=== PATIENT | female | born 1965 | race Caucasian/White ===

== ENCOUNTER → 2016-08-12 | Outpatient (CLI) | payer MEDICARE ==
--- NOTE | ~2016-08-12 | PUL ---
PATIENT'S NAME: LORENZO POLLARD [facility] AGE: 50 Y [address] ROOM: [place] [id number] LOCATION: [facility] ADMIT DATE: 08/12/2016 Pulmonary DISCHARGE DATE: FAMILY PHYSICIAN: Tori Lo MD ATTENDING PHYSICIAN: AKSHAT SIMMONS NAME OF PROCEDURE: Pulmonary Function Test DATE OF PROCEDURE: August 12, 2016 TECH: ATripe, SENIOR GL ACCOUNTANT REASON FOR EXAM: Complex Sleep Apnea Syndrome RESULTS: 1. FVC was 3.08 liters which is 63% of predicted and low, FEV1 was 2.41 liters which is 62% of predicted and low, and FEV1/FVC was 78% and normal. The flow volume curve did not reveal any significant airflow limitation. After bronchodilator administration FVC decreased to 3.06 liters and FEV1 increased to 2.61 which is a 9% increase. FEV1/FVC was 86%. 2. DLCO was 22 with an adjusted DLCO of 23 which is 59% of predicted and low. 3. Total lung capacity was 5 liters which is 72% of predicted and low, and residual volume was 1.9 liters which is 74% of predicted and normal. 4. pH was 7.4, pCO2 was 53, PO2 was 73 while on room air. The base excess was 6.6. PHYSICIAN INTERPRETATION: The patient has no airflow limitation and no significant bronchodilator response. Her diffusion capacity is moderately low. She has evidence of moderate restrictive lung disease. There is respiratory acidosis with adequate metabolic compensation and no hypoxia at rest while on room air. MD DEDE VELARDE/paul /[id number] dtt: 08/13/16 1322 , AKSHAT SIMMONS dtd: 08/13/16 1059
[2016-08-12 13:24] LABS: BICARBONATE 32.8 mmol/L (18.0-23.0); PCO2 53 mmHg (35-45); PO2 73 mmHg (80-90)
== END | disposition disaster alternative care site (69) ==
LOC: GRTH 12:46
PROVIDERS: Internal Medicine Critical Care Medicine
DX: G47.31 Primary central sleep apnea (principal); G47.19 Other hypersomnia; J98.4 Other disorders of lung; E87.2 Acidosis

== ENCOUNTER → 2016-08-27 | Outpatient (CLI) | payer MEDICARE ==
--- NOTE | ~2016-08-27 | PUL ---
PATIENT'S NAME: LORENZO POLLARD [facility] AGE: 51 Y [address] ROOM: [place] [address] LOCATION: [facility] ADMIT DATE: 08/27/2016 Pulmonary DISCHARGE DATE: FAMILY PHYSICIAN: Tori Lo MD ATTENDING PHYSICIAN: AKSHAT SIMMONS NAME OF PROCEDURE: Sleep study PROCEDURE DATE: 08/27/16 TECH: MAR Owen TEST #: [facility] [place]# [id number] TECHNICAL PARAMETERS: The patient was studied using International 10/20 measuring system. While the patient was studied, there was continuous monitoring of EEG (8 leads), EOG (2 leads), EKG (3 leads), submental EMG (3 leads), tibial (4 leads), respiratory inductive plethysmography (RIP) for thoracic and abdominal effort, oral and nasal airflow with a thermocouple and pressure transducer, and oximetry. The dye lab technician also performed visual and auditory observations noting things like body position, patient's status, breath sounds, artifact, snoring level and patient comments. Continuous sound was monitored using a 2-way speaker system and video monitoring was performed using an infrared camera. Review of the entire study was performed epoch by epoch utilizing a single epoch and multiple epoch capability sleep system. MEDICAL HISTORY: Patient is a 50-year-old massively obese woman with complex sleep apnea. This study was done to titrate PAP therapy. SLEEP STAGE SUMMARY: The patient was studied for 458 minutes of which she slept 409 minutes. She fell asleep in 2 minutes and slept for 90% of the night. Sleep architecture revealed a decline in REM sleep. RESPIRATORY SUMMARY: The patient had previously failed CPAP titration due to emergence and persistence of central events. This study was started on BiPAP. BiPAP was initially titrated to 22/14 cm. The apnea/hypopnea index remained exceptionally high on those settings in the patient was then switched to AVAPS. AVAPS settings were adjusted, but also failed to adequately control the respiratory events including central events. The patient was switched back to BiPAP. Best level of control through the night occurred with BiPAP at 20/14 cm with 2 liters of oxygen bled in for non apneic hypoxemic episodes that persisted. At 20/14 cm the apnea-hypopnea index was 18.5 events per hour. EKG SUMMARY: No dysrhythmias were noted. PATIENT'S NAME: LORENZO POLLARD [facility] AGE: 51 Y [address] ROOM: [place] [address] LOCATION: [facility] ADMIT DATE: 08/27/2016 Pulmonary DISCHARGE DATE: FAMILY PHYSICIAN: Tori Lo MD ATTENDING PHYSICIAN: AKSHAT SIMMONS LIMB MOVEMENT SUMMARY: No clinically relevant periodic limb movements were noted. SUMMARY: Complex sleep apnea. Although BiPAP at 20/14 cm with 2 liters of oxygen produced less than desirable control of the respiratory events there was evidence of some therapeutic effect with the emergence of both stage delta sleep and REM sleep on those settings. PLAN: Would consider BiPAP at 20/14cm with 2 liters of oxygen coupled with other measures such as weight loss, avoidance of alcohol or sedating medications at night. Surgical intervention if anatomically appropriate might also improve the parameters. The patient will receive results from the ordering provider. QUINN BRENNAN MD MAR/ /[id number] dtt: 09/04/16 0721 , Quinn Brennan dtd: 08/31/16 1159
== END | disposition disaster alternative care site (69) ==
LOC: GSLP 20:34
DX: G47.31 Primary central sleep apnea (principal); G47.19 Other hypersomnia; G47.39 Other sleep apnea